=== PATIENT | male | born 1945 | race Caucasian/White ===

== ENCOUNTER 2017-05-17 06:17 | Day surgery (SDC) | payer MEDICARE ==
[~2017-05-17] VITALS: Ht 177.8 cm; Wt 101.9 kg
[2017-05-17 06:47] VITALS: BP 124/67
[2017-05-17] MEDS ORDERED: SODIUM CHLORIDE 0.9% 1000ML 1,000 ML IV ONE (06:47)
[2017-05-17] MEDS ORDERED: GLYCOPYRROLATE 0.2 MG/ML 5 ML VIAL ONE (07:18)
[2017-05-17] MEDS ORDERED: PROPOFOL 1000 MG/100 ML 100 ML IV ONE (07:18)
[2017-05-17] MEDS ORDERED: SUCCINYLCHOLINE CHLORIDE 20 MG/ML 10 ML VIAL ONE (07:18)
[2017-05-17] MEDS ORDERED: PHENYLEPHRINE HCL 10 MG/ML 1ML VIAL IV ONE (07:18)
[2017-05-17] MEDS ORDERED: LIDOCAINE HCL 1% 20 ML VIAL ONE (07:18)
[2017-05-17] MEDS ORDERED: EZET10 PO (07:27)
[2017-05-17] MEDS ORDERED: GLIM1TAB2 PO (07:27)
[2017-05-17] MEDS ORDERED: HYDR200T4 PO (07:27)
[2017-05-17] MEDS ORDERED: SAXA5TAB PO (07:27)
[2017-05-17] MEDS ORDERED: CARV6.2579 PO (07:27)
[2017-05-17] MEDS ORDERED: SULI200T4 PO (07:27)
[2017-05-17] MEDS ORDERED: LISI2.5T2 PO (07:27)
[2017-05-17] MEDS ORDERED: ASPI-555 PO (07:27)
[2017-05-17] MEDS ORDERED: ETAN50PE SQ (07:27)
[2017-05-17] MEDS ORDERED: GABA-318 PO (07:27)
[2017-05-17 07:42] VITALS: BP 119/61
== END 2017-05-17 08:15 ==
LOC: DAH 06:17
PROVIDERS: ATTEND Internal Medicine Gastroenterology
DX: R19.7 Diarrhea, unspecified (principal); E11.9 Type 2 diabetes mellitus without complications; I10 Essential (primary) hypertension; I25.10 Atherosclerotic heart disease of native coronary artery without angina pectoris; E78.5 Hyperlipidemia, unspecified; M06.9 Rheumatoid arthritis, unspecified; K21.9 Gastro-esophageal reflux disease without esophagitis; Z98.890 Other specified postprocedural states; Z88.8 Allergy status to other drugs, medicaments and biological substances; Z91.048 Other nonmedicinal substance allergy status; Z95.1 Presence of aortocoronary bypass graft
CPT/HCPCS: 45380; 82948; 88305; 93005; A4606; J0330; J2370; J2704; J3490; J7030

== ENCOUNTER 2019-05-04 22:23 | Emergency (ER) | payer MEDICARE ==
[~2019-05-04 22:23] MED LIST: ASPI-555 PO; CARV6.2579 PO; ETAN50PE3 SQ; EZET10TA13 PO; GABA600T10 PO; GLIM1TAB18 PO; HYDR200T4 PO; LISI2.5T2 PO; SAXA5TAB PO; SULI200T4 PO
[2019-05-04] MEDS ORDERED: SODIUM CHLORIDE 0.9% 1000ML 1,000 ML IV ONE (22:52)
[2019-05-04 22:58] LABS: BASOPHILS % (AUTO) 0.7 % (0.0-5.0); EOSINOPHILS % (AUTO) 2.5 % (0.0-8.0); HEMATOCRIT 39.7 % (42-54); MEAN CORPUSCULAR HEMOGLOBIN 31.6 pg (27.0-33.0); MEAN CORPUSCULAR HGB CONC 34.3 g/dL (32.0-36.0); MEAN CORPUSCULAR VOLUME 92.3 fL (79-99); NEUTROPHILS % (AUTO) 65.5 % (40.0-77.0); PLATELET COUNT (AUTO) 148 K/uL (130-400); RED CELL DISTRIBUTION WIDTH 13.2 % (11.0-15.5); WHITE BLOOD COUNT (AUTO) 8.5 K/uL (4.8-10.8)
[2019-05-04 23:05] LABS: APPEARANCE,URINE Cloudy (CLEAR); BILIRUBIN,URINE Negative (NEGATIVE); COLOR,URINE Orange (YELLOW); GLUCOSE, URINE (UA) Negative (NEGATIVE); KETONES,URINE Negative (NEGATIVE); LEUKOCYTE ESTERASE ,URINE Trace (NEGATIVE); NITRATE,URINE Negative (NEGATIVE); OCCULT BLOOD,URINE Large (NEGATIVE); PH,URINE 6.5 (5.0-8.0); PROTEIN,URINE Trace mg/dL (NEGATIVE)
[2019-05-04 23:11] LABS: CREATININE 1.3 mg/dL (0.5-1.5); POTASSIUM 4.2 mmol/L (3.5-5.1)
[2019-05-04 23:13] LABS: INR 0.93 (0.85-1.15); PARTIAL THROMBOPLASTIN TIME 22.9 SEC (26.3-35.5); PROTHROMBIN TIME 9.8 SEC (9.6-11.6)
[2019-05-04 23:14] LABS: RBC,URINE 51-100 /HPF (0-1)
[2019-05-04 23:16] LABS: ALBUMIN 3.9 g/dL (3.5-5.0); BILIRUBIN,TOTAL 0.4 mg/dL (0.2-1.0); TOTAL PROTEIN, SERUM 7.6 g/dL (6.0-8.3)
[2019-05-04 23:17] LABS: BACTERIA,URINE None Seen /HPF (None Seen); SQUAMOUS EPITHELIAL CELL,UR Rare /HPF (0-2)
[2019-05-05] MEDS ORDERED: KETOROLAC TROMETHAMINE 15MG/ML ONE
[2019-05-05] MEDS ORDERED: TAMSULOSIN HCL 0.4 MG CAP.ER.24H ONE
== END 2019-05-05 00:28 | disposition home or self-care (01) ==
LOC: EDH 22:23
DX: N23 Unspecified renal colic (principal); R31.9 Hematuria, unspecified; E11.9 Type 2 diabetes mellitus without complications; I10 Essential (primary) hypertension; M06.9 Rheumatoid arthritis, unspecified; E78.00 Pure hypercholesterolemia, unspecified; Z88.8 Allergy status to other drugs, medicaments and biological substances; Z95.1 Presence of aortocoronary bypass graft; Z90.49 Acquired absence of other specified parts of digestive tract; Z98.890 Other specified postprocedural states
CPT/HCPCS: 36415; 74176; 80053; 81001; 82550; 83605; 83690; 85025; 85610; 85730; 87088; 96374; 99285; J1885; J7030